=== PATIENT | male | born 1990 | race Caucasian/White ===

== ENCOUNTER 2016-05-06 06:13 | Emergency (ER) | payer BC, OTHER ==
[~2016-05-06] VITALS: Ht 170.2 cm; Wt 120.0 kg
[2016-05-06 06:18] VITALS: BP_SYST 178; BP_SYST 179; BP_DIAS 117; BP_DIAS 119; PULSE 69; RESP 18; TEMP 98; O2SAT 98
[2016-05-06 06:21] VITALS: BP 178/109; PULSE 66; RESP 18; O2SAT 98
[2016-05-06] MEDS ORDERED: SODIUM CHLORIDE 0.9% FLUSH 5 ML FLUSH IVF PRN (06:30)
[2016-05-06] MEDS ORDERED: SODIUM CHLOR 0.9% 1000 ML INJ 1,000 ML IV SCH (06:30)
[2016-05-06] MEDS ORDERED: NITROGLYCERIN 0.4 MG SL 25 TABS/BTL SL ONE (06:30)
[2016-05-06] MEDS ORDERED: ASPIRIN 81 MG CHEW TAB PO ONE (06:30)
[2016-05-06 06:32] VITALS: BP_SYST 148; BP_SYST 178; BP_DIAS 109; BP_DIAS 95; PULSE 72
[2016-05-06 07:02] LABS: WHITE BLOOD COUNT 10.2 TH/MM3 (4.0-11.0)
[2016-05-06 07:03] LABS: AUTOMATED NEUTROPHIL # 6.1 TH/MM3 (1.8-7.7); BASOPHIL % 0.4 % (0.0-2.0); EOSINOPHIL # 0.5 TH/MM3 (0-0.4); EOSINOPHIL % 5.1 % (0.0-4.0); HEMATOCRIT 43.4 % (39.0-51.0); HEMO FLAGS DIFF FINAL; MEAN CORPUSCULAR HGB CONC 33.7 % (32.0-36.0); NEUT % 59.5 % (16.0-70.0); PLATELET COUNT 336 TH/MM3 (150-450); RED BLOOD COUNT 5.23 MIL/MM3 (4.50-5.90); RED CELL DISTRIBUTION WIDTH 13.7 % (11.6-17.2)
[2016-05-06 07:20] LABS: APTT (PATIENT) 29.4 SEC (24.3-30.1); PROTHROMBIN TIME - PATIENT 10.7 SEC (9.8-11.6)
[2016-05-06 07:26] LABS: ANION GAP 8 MEQ/L (5-15); BICARBONATE 25.7 MEQ/L (21.0-32.0); BLOOD UREA NITROGEN 14 MG/DL (7-18); CHLORIDE 105 MEQ/L (98-107); GLOMERULAR FILTRATION RATE 82 ML/MIN (>89); MAGNESIUM 2.3 MG/DL (1.5-2.5); POTASSIUM 4.1 MEQ/L (3.5-5.1); SODIUM (NA) 139 MEQ/L (136-145)
[2016-05-06 07:27] LABS: CREATINE KINASE 304 U/L (39-308)
[2016-05-06 07:39] LABS: CKMB 1.5 NG/ML (0.5-3.6)
--- NOTE | 2016-05-06 07:41 | RADRPT ---
EXAM DATE/TIME: 05/06/2016 07:05 [place] COMPARISON: CHEST SINGLE AP, July 16, 2015, 12:28. INDICATIONS : Chest pain. MEDICAL HISTORY : None. SURGICAL HISTORY : None. ENCOUNTER: Initial ACUITY: 1 day PAIN SCORE: 8/10 LOCATION: middle chest. FINDINGS: A single view of the chest demonstrates the lungs to be symmetrically aerated without evidence of mas s, infiltrate or effusion. The cardiomediastinal contours are unremarkable. Osseous structures are intact. CONCLUSION: Normal examination. Lui Guthrie MD on May 06, 2016 at 7:40 Board Certified Radiologist. This report was verified electronically.
[2016-05-06 07:51] VITALS: BP 133/92; PULSE 63; RESP 18; O2SAT 98
--- NOTE | 2016-05-06 07:56 | PD ---
HPI Chief Complaint: Chest Pain Time Seen by Provider: 06:27 Travel History International Travel<30 days: No Contact w/Intl Traveler<30days: No Traveled to known affect area: No History of Present Illness HPI 25-year-old male presents to the emergency prior by private transport sport in the care of his spouse for evaluation of retrosternal chest pain radiating to his left arm with tingling brief episode of nausea shortness of breath and diaphoresis reportedly. Patient states that he has noted some intermittent discomfort as he has been performing increase physical tasks while working out and going through [employer]. Patient has history of paroxysmal atrial fibrillation and has undergone ablation in the past. Patient is followed by electric stop installer Dr. Hall. Patient denies personal history of hypertension dyslipidemia diabetes or tobaccoism. Patient does have family history of father having early onset heart disease and father being a tobacco smoker. Patient currently rates discomfort as mild 3/10 in intensity and states has decreased significantly since onset but it was initially 7/10 in intensity although that was short-lived. Patient denies any referred pain to his neck jaw back or abdomen. is at bedside and is very concerned about his anxiety. [facility] Past Medical History Narrative Medical meidacal record reviewed: Atrial fibrillation, HTN, asthma, chewing tobacco Hx Anticoagulant Therapy: No Atrial Fibrillation: Yes Heart Rhythm Problems: Yes (AFIB) Cardiac Catheterization: No Cardiovascular Problems: Yes High Cholesterol: No Chemotherapy: No Diabetes: No Herniated Disk: Yes Hypertension: Yes Musculoskeletal: Yes (BROKEN LEG, FX SPINE, HENIATED DISC) Respiratory: Yes (ASTHMA) Tetanus Vaccination: Unknown Influenza Vaccination: No Past Surgical History Appendectomy: Yes Coronary Artery Bypass Graft: No Family History Family Myocardial Infarction: Yes (FATHER) Social History Alcohol Use: Yes (OCCASIONALLY) Tobacco Use: Yes (chewing tobacco daily) Substance Use: No Allergies-Medications (Allergen,Severity, Reaction): Coded Allergies: No Known Allergies (Unverified , 05/06/16) Reported Meds & Prescriptions Reported Meds & Active Scripts Active No Active Prescriptions or Reported Medications Review of Systems Except as stated in HPI: all other systems reviewed are Neg General / Constitutional: No: Chills HENT: No: Congestion Cardiovascular: Positive: Chest Pain or Discomfort, Diaphoresis Respiratory: Positive: Shortness of Breath Gastrointestinal: No: Abdominal Pain Genitourinary: No: Flank Pain Musculoskeletal: No: Myalgias, Arthralgias Skin: No Rash Neurologic: No: Weakness Psychiatric: No: Anxiety Hematologic/Lymphatic: No: Lymph Node Enlargement Physical Exam Narrative GENERAL: Well-developed well-nourished male in no acute distress no respiratory distress; hypertensive 179/119 SKIN: Warm and dry. HEAD: Normocephalic. EYES: No scleral icterus. No injection or drainage. NECK: Supple, trachea midline. No JVD or lymphadenopathy. CARDIOVASCULAR: Regular rate and rhythm without murmurs, gallops, or rubs. RESPIRATORY: Breath sounds equal bilaterally. No accessory muscle use. GASTROINTESTINAL: Abdomen soft, non-tender, nondistended. MUSCULOSKELETAL: No cyanosis, or edema. Bilateral pulses 2+ to palpation BACK: Nontender without obvious deformity. No CVA tenderness. Data Data Last Documented VS Vital Signs Date Time Temp Pulse Resp B/P Pulse Ox O2 Delivery O2 Flow Rate FiO2 05/06/16 07:51 63 18 133/92 98 Room Air 05/06/16 06:36 2 05/06/16 06:18 98.0 Orders Electrocardiogram (05/06/16 06:27) Basic Metabolic Panel (Bmp) (05/06/16 06:27) Ckmb (Isoenzyme) Profile (05/06/16 06:27) Complete Blood Count With Diff (05/06/16 06:27) Magnesium (Mg) (05/06/16 06:27) Prothrombin Time / Inr (Pt) (05/06/16 06:27) Act Partial Throm Time (Ptt) (05/06/16 06:27) Troponin I (05/06/16 06:27) Chest, Single Ap (05/06/16 06:27) Ecg Monitoring (05/06/16 06:27) Bilateral Bp Monitoring (05/06/16 06:27) Iv Access Insert/Monitor (05/06/16 06:27) Oximetry (05/06/16 06:27) Oxygen Administration (05/06/16 06:27) Aspirin Chew (Aspirin Chew) (05/06/16 06:30) Sodium Chloride 0.9% Flush (Ns Flush) (05/06/16 06:30) Sodium Chlor 0.9% 1000 Ml Inj (Ns 1000 M (05/06/16 06:30) Nitroglycerin Sl (Nitrostat Sl) (05/06/16 06:30) CKMB (05/06/16 06:35) CKMB% (05/06/16 06:35) Troponin I (05/06/16 09:35) Labs Laboratory Tests Test 05/06/16 06:35 White Blood Count 10.2 TH/MM3 Red Blood Count 5.23 MIL/MM3 Hemoglobin 14.6 GM/DL Hematocrit 43.4 % Mean Corpuscular Volume 83.0 FL Mean Corpuscular Hemoglobin 28.0 PG Mean Corpuscular Hemoglobin 33.7 % Concent Red Cell Distribution Width 13.7 % Platelet Count 336 TH/MM3 Mean Platelet Volume 8.3 FL Neutrophils (%) (Auto) 59.5 % Lymphocytes (%) (Auto) 29.0 % Monocytes (%) (Auto) 6.0 % Eosinophils (%) (Auto) 5.1 % Basophils (%) (Auto) 0.4 % Neutrophils # (Auto) 6.1 TH/MM3 Lymphocytes # (Auto) 3.0 TH/MM3 Monocytes # (Auto) 0.6 TH/MM3 Eosinophils # (Auto) 0.5 TH/MM3 Basophils # (Auto) 0.0 TH/MM3 CBC Comment DIFF FINAL Differential Comment Prothrombin Time 10.7 SEC Prothromb Time International 1.0 RATIO Ratio Activated Partial 29.4 SEC Thromboplast Time Sodium Level 139 MEQ/L Potassium Level 4.1 MEQ/L Chloride Level 105 MEQ/L Carbon Dioxide Level 25.7 MEQ/L Anion Gap 8 MEQ/L Blood Urea Nitrogen 14 MG/DL Creatinine 1.09 MG/DL Estimat Glomerular Filtration 82 ML/MIN Rate Random Glucose 93 MG/DL Calcium Level 8.9 MG/DL Magnesium Level 2.3 MG/DL Total Creatine Kinase 304 U/L Creatine Kinase MB 1.5 NG/ML Troponin I LESS THAN 0.02 NG/ML MDM Medical Decision Making Medical Screen Exam Complete: Yes Emergency Medical Condition: Yes Medical Record Reviewed: Yes Interpretation(s) EKG normal sinus rhythm rate [address] elevation or injury pattern change noted EKG is unchanged from prior study 07/2015 Chest x-ray: No acute abnormality per reading radiologist Dr. Guthrie Laboratory Tests Test 05/06/16 06:35 White Blood Count 10.2 TH/MM3 Red Blood Count 5.23 MIL/MM3 Hemoglobin 14.6 GM/DL Hematocrit 43.4 % Mean Corpuscular Volume 83.0 FL Mean Corpuscular Hemoglobin 28.0 PG Mean Corpuscular Hemoglobin 33.7 % Concent Red Cell Distribution Width 13.7 % Platelet Count 336 TH/MM3 Mean Platelet Volume 8.3 FL Neutrophils (%) (Auto) 59.5 % Lymphocytes (%) (Auto) 29.0 % Monocytes (%) (Auto) 6.0 % Eosinophils (%) (Auto) 5.1 % Basophils (%) (Auto) 0.4 % Neutrophils # (Auto) 6.1 TH/MM3 Lymphocytes # (Auto) 3.0 TH/MM3 Monocytes # (Auto) 0.6 TH/MM3 Eosinophils # (Auto) 0.5 TH/MM3 Basophils # (Auto) 0.0 TH/MM3 CBC Comment DIFF FINAL Differential Comment Prothrombin Time 10.7 SEC Prothromb Time International 1.0 RATIO Ratio Activated Partial 29.4 SEC Thromboplast Time Sodium Level 139 MEQ/L Potassium Level 4.1 MEQ/L Chloride Level 105 MEQ/L Carbon Dioxide Level 25.7 MEQ/L Anion Gap 8 MEQ/L Blood Urea Nitrogen 14 MG/DL Creatinine 1.09 MG/DL Estimat Glomerular Filtration 82 ML/MIN Rate Random Glucose 93 MG/DL Calcium Level 8.9 MG/DL Magnesium Level 2.3 MG/DL Total Creatine Kinase 304 U/L Creatine Kinase MB 1.5 NG/ML Troponin I LESS THAN 0.02 NG/ML Differential Diagnosis Chest pain, ACS, uncontrolled hypertension, aortic dissection, radiculopathy, anxiety Narrative Course 25-year-old male presents to the emergency department for episode of chest discomfort with tingling in the left upper extremity EKG shows no acute injury pattern change presently patient has no chest discomfort or chest pain; patient administered aspirin; similar nitroglycerin times one ordered due to hypertension; bilateral blood pressures symmetric Cardiac enzymes within normal range patient remains asymptomatic; patient's case discussed with his electric stop installer Dr. hall Patient is informed of recommendation of his electric stop installer Dr. hall to have an additional troponin obtained while in the emergency department as long as he remains comfortable asymptomatic and the cardiac enzyme on repeat is within normal range patient should follow-up with his electric stop installer in the office as an outpatient obviously should there be any change in his condition or there is a change in the troponin/elevation the patient will require admission. Patient is agreeable with this plan. Patient underwent stress test as recently as 2015 that was remarkable for rare sinus tachycardia but no ischemia and was considered low risk for coronary vessel disease. Patient's care signed over to oncoming physician Dr. Beyer is scheduled to follow-up with second troponin I Physician Communication Physician Communication case discussed with Dr Hall-electric stop installer requests second trop in ed then may follow uip as out patient in office if remains cp free and trop normal --recent less than one tear normal stress test Scripts No Active Prescriptions or Reported Meds Nenita Gutierrez MD May 06, 2016 07:56 Scripts No Active Prescriptions or Reported Christianos Nenita Gutierrez MD May 06, 2016 07:56
--- NOTE | 2016-05-06 23:34 | EKG ---
Date Performed: 05/06/2016 Time Performed: 09:48:06 PTAGE: 25 years EKG: SINUS BRADYCARDIA BORDERLINE ECG PREVIOUS TRACING : 05/06/2016 06.29 DOCTOR: Cassie Clark Interpretating Date/Time 05/06/2016 23:33:35
--- NOTE | 2016-05-06 23:40 | EKG ---
Date Performed: 05/06/2016 Time Performed: 06:29:03 PTAGE: 25 years EKG: Sinus rhythm NORMAL ECG PREVIOUS TRACING : 07/16/2015 12.28 DOCTOR: Cassie Clark Interpretating Date/Time 05/06/2016 23:39:12
--- NOTE | 2016-05-16 08:14 | PD ---
Data Data Orders Electrocardiogram (05/06/16 06:27) Basic Metabolic Panel (Bmp) (05/06/16 06:27) Ckmb (Isoenzyme) Profile (05/06/16 06:27) Complete Blood Count With Diff (05/06/16 06:27) Magnesium (Mg) (05/06/16 06:27) Prothrombin Time / Inr (Pt) (05/06/16 06:27) Act Partial Throm Time (Ptt) (05/06/16 06:27) Troponin I (05/06/16 06:27) Chest, Single Ap (05/06/16 06:27) Ecg Monitoring (05/06/16 06:27) Bilateral Bp Monitoring (05/06/16 06:27) Iv Access Insert/Monitor (05/06/16 06:27) Oximetry (05/06/16 06:27) Oxygen Administration (05/06/16 06:27) Aspirin Chew (Aspirin Chew) (05/06/16 06:30) Sodium Chloride 0.9% Flush (Ns Flush) (05/06/16 06:30) Sodium Chlor 0.9% 1000 Ml Inj (Ns 1000 M (05/06/16 06:30) Nitroglycerin Sl (Nitrostat Sl) (05/06/16 06:30) CKMB (05/06/16 06:35) CKMB% (05/06/16 06:35) Troponin I (05/06/16 09:35) Electrocardiogram (05/06/16 09:12) MDM Supervised Visit with MIRIAM: No Narrative Course This patient is checked out to me by Dr. Gutierrez. He had some atypical chest/ cardiac symptoms. Dr. Gutierrez consulted with his customer contact specialist and they decided upon discharging him if his second set of cardiac enzymes and EKG was normal. I have received that second set and his EKG and troponin are normal. I have met with and reviewed with the patient. He is feeling well at this time he would like to go home. He will Follow-up with the customer contact specialist. Diagnosis Primary Impression: Atypical chest pain Patient Instructions: General Instructions Departure Forms: Tests/Procedures Scripts No Active Prescriptions or Reported Meds Disposition: 01 DISCHARGE HOME Condition: Stable Bharath Beyer MD May 16, 2016 08:14
== END 2016-05-06 11:22 | disposition home or self-care (01) ==
LOC: NEPC 06:13
DX: R07.9 Chest pain, unspecified (principal); R11.0 Nausea
CPT/HCPCS: 71010; 80048; 82550; 82552; 83735; 84484; 85025; 85610; 85730; 93005; 96360; 99285; J7030